=== PATIENT | female | born 1960 | race African-American/Black ===

== ENCOUNTER 2020-05-30 07:53 | Emergency (ER) | payer MEDICARE, MEDICAID ==
--- NOTE | 2020-05-30 08:40 | RADIOLOGY REPORT (SQ) ---
EXAM DESCRIPTION: CHEST SINGLE VIEW IMAGES COMPLETED DATE/TIME: 05/30/2020 8:22 am REASON FOR STUDY: bed 6 short of breath COMPARISON: None. EXAM PARAMETERS: NUMBER OF VIEWS: One view. TECHNIQUE: Single frontal radiographic view of the chest acquired. RADIATION DOSE: NA LIMITATIONS: None. FINDINGS: LUNGS AND PLEURA: Basilar interstitial markings are prominent. No focal consolidation or pneumothorax. No effusions. MEDIASTINUM AND HILAR STRUCTURES: No masses. Contour normal. HEART AND VASCULAR STRUCTURES: Heart is enlarged. Mild central vascular prominence. BONES: No acute findings. HARDWARE: Dialysis catheters in place. Vascular stents overlie the left axilla. OTHER: No other significant finding. IMPRESSION: Cardiomegaly. Mild prominence of interstitial markings. This may represent mild vascul ar congestion. TECHNICAL DOCUMENTATION: JOB ID: [id number] 2010 [employer]- All Rights Reserved Reading location - IP/workstation name: [email or web address]
--- NOTE | 2020-05-30 08:49 | ER Document Report ---
ED General - General Chief Complaint: Shortness Of Breath Stated Complaint: SHORTNESS OF BREATH Primary Care Provider: DANIEL MACE PA-C [ALLIED HEALTH PROFESSIONAL] - Follow up as needed - [facility] Notes: 60-year-old female arrives with shortness of breath. Patient states that she had sudden onset of shortness of breath today, felt that she could not breathe. Denies chest pain, fever or cough. Patient is a Saturday dialysis patient, she last went to dialysis last Saturday. She did not go to dialysis on Saturday because she had a fall the night previous and had some pain to her head, left shoulder and left leg. She states that she did go to the dialysis center today however did not receive her session because there was concern that her left chest Vas-Cath has been dislodged. Patient states that it likely pulled out when she fell last week. She states that it was placed about a week ago in [place]. She did not take any of her hypertensive medicines this morning. - Related Data Allergies/Adverse Reactions: amoxicillin Allergy (Verified 05/30/20 08:24) tomato Allergy (Verified 05/30/20 08:24) Home Medications: Amlodipine, Omeprazole, Aspirin, Renvela, Cyclobenzaprine, Temazepam, Terazosin, Lasix, Gabapentin, Tramadol, Trazadone, Lorazepam, Metoprolol Past Medical History - General Information source: Patient - Social History Smoking Status: Current Every Day Smoker Family History: Reviewed & Not Pertinent - Past Medical History Cardiac Medical History: Reports: Hx Hypertension Endocrine Medical History: Reports: Hx Diabetes Mellitus Type 2 Renal/ Medical History: Reports: Hx End Stage Renal Disease GI Medical History: Reports: Hx Gastroesophageal Reflux Disease Review of Systems - Review of Systems Constitutional: denies: Chills, Fever EENT: denies: Blurred vision Cardiovascular: denies: Chest pain Respiratory: Short of breath Gastrointestinal: denies: Abdominal pain Genitourinary: Other - Does not make urine Female Genitourinary: No symptoms reported Musculoskeletal: Joint pain Skin: No symptoms reported Hematologic/Lymphatic: No symptoms reported Neurological/Psychological: denies: Headaches Physical Exam - Vital signs Vitals: Temp Resp BP Pulse Ox 98.5 F 19 188/165 H 98 05/30/20 07:58 05/30/20 07:58 05/30/20 07:58 05/30/20 07:58 - General General appearance: Alert In distress: Moderate - HEENT Head: Normocephalic, Atraumatic Eyes: Periorbital ecchymosis Extraocular movements intact: Yes Pupils: PERRL - Respiratory Respiratory status: Tachypnea Breath sounds: Rales - Cardiovascular Rhythm: Other Heart sounds: Normal auscultation Murmur: Yes - Abdominal Inspection: Obese Tenderness: Nontender - Extremities General lower extremity: Edema Notes: Full range of motion of left shoulder, no deformity. She has mild tenderness in the anterior aspect - Neurological Neuro grossly intact: Yes Cognition: Normal Orientation: AAOx4 - Psychological Associated symptoms: Normal affect - Skin Skin Temperature: Warm Course - Re-evaluation Re-evalutation: 60-year-old female here with acute onset of shortness of breath. She is a dialysis patient, she has missed her last 2 sessions. On exam she has some increased work of breathing and diffuse rails. Not coughing up any frothy sputum. She has some peripheral edema as well. Additionally looking at her last cath it does appear to be somewhat dislodged. It appears that the cough is now visible outside of her skin. I am concerned for acute volume overload secondary to missing dialysis. Currently does not need BiPAP but will monitor closely. Likely hyperkalemia. She additionally is quite hypertensive 220s over 120s, will initiate nitro infusion. Currently do not have dialysis capabilities here, anticipating she will need to be transferred. 05/30/20 11:06 Hyperkalemia which is expected. EKG without massive peaked T's. Have ordered calcium gluconate, D50, insulin and bicarb to shift. Called [facility] to initiate transfer. 05/30/20 11:[address] Banerjee with nephrology, pt to be transfered for dialysis 05/30/20 12:[address] Rico who will be able to place trialysis cath 05/30/20 13:11 Patient has been accepted in transfer by Dr. Sue. Informed by nursing that potassium shifting medications have not yet been administered due to incompatibility with her peripheral line. We are still pending trial since catheter placement. 05/30/20 13:[address], there is no bleed. It does comment that there is some orbital fat herniation, would consider this to be subacute fracture based on that she fell last week. She has no exophthalmos. - Vital Signs Vital signs: Temp Pulse Resp BP Pulse Ox 98.5 F 11 L 199/93 H 99 05/30/20 07:58 05/30/20 12:41 05/30/20 12:46 05/30/20 12:46 - Laboratory Result Diagrams: 05/30/20 09:04 05/30/20 09:04 Laboratory results interpreted by me: 05/30/20 05/30/20 05/30/20 09:04 09:04 09:04 RBC 3.52 L Hgb 10.1 L Hct 30.5 L RDW 15.0 H Seg Neutrophils % 79.0 H VBG pH 7.27 L VBG HCO3 16.6 L Potassium 5.7 H Carbon Dioxide 19 L BUN 82 H Creatinine 21.63 H Est GFR ( Amer) 2 L Est GFR (MDRD) Non-Af 2 L Phosphorus 7.3 H Direct Bilirubin 0.7 H Alkaline Phosphatase 156 H NT-Pro-B Natriuret Pep 05/30/20 09:04 RBC Hgb Hct RDW Seg Neutrophils % VBG pH VBG HCO3 Potassium Carbon Dioxide BUN Creatinine Est GFR ( Amer) Est GFR (MDRD) Non-Af Phosphorus Direct Bilirubin Alkaline Phosphatase NT-Pro-B Natriuret Pep 57351 H - Diagnostic Test Radiology reviewed: Image reviewed, Reports reviewed - EKG Interpretation by Me Additional EKG results interpreted by me: EKG interpreted by me. Sinus rhythm with rate 78. Right bundle. Slightly peaked T's in V3 and V4. Discharge - Discharge Clinical Impression: ESRD needing dialysis, Hyperkalemia, Hypertensive emergency Pulmonary edema Qualifiers: Chronicity: acute Qualified Code(s): J81.0 - Acute pulmonary edema Facial trauma Qualifiers: Encounter type: initial encounter Qualified Code(s): S09.93XA - Unspecified injury of face, initial encounter Disposition: [facility] Referrals: DANIEL MACE PA-C [ALLIED HEALTH PROFESSIONAL] - Follow up as needed
[2020-05-30] MEDS ORDERED: NITROGLYCERIN/D5W 50 MG/250 ML RTUINJ IV PRN (09:04)
[2020-05-30 09:36] LABS: VENOUS BLOOD BASE EXCESS -9.6 mmol/L; VENOUS BLOOD HCO3 16.6 mmol/L (20-32); VENOUS BLOOD PCO2 37.3 mmHg (35-63); VENOUS BLOOD PH 7.27 (7.30-7.42)
[2020-05-30 09:37] LABS: INTERNATIONAL RATION (INR) 1.04; PROTHROMBIN TIME 13.8 SEC (11.4-15.4)
[2020-05-30 09:47] LABS: ABSOLUTE BASOPHILS # (AUTO) 0.1 10^3/uL (0.0-0.2); ABSOLUTE EOSINOPHILS # (AUTO) 0.2 10^3/uL (0.0-0.6); ABSOLUTE LYMPHOCYTES (AUTO) 1.3 10^3/uL (0.5-4.7); ABSOLUTE MONOCYTES (AUTO) 0.3 10^3/uL (0.1-1.4); BASOPHILS % (AUTO) 0.7 % (0-2); EOSINOPHILS % (AUTO) 1.8 % (0-6); HEMATOCRIT 30.5 % (36.0-47.0); HEMOGLOBIN 10.1 g/dL (12.0-15.5); MEAN CORPUSCULAR HEMOGLOBIN 28.6 pg (27.0-33.4); MEAN CORPUSCULAR VOLUME 87 fl (80-97); MONOCYTES % (AUTO) 3.5 % (3-13); PLATELET COUNT 236 10^3/uL (150-450); RED BLOOD COUNT 3.52 10^6/uL (3.72-5.28); TOTAL CELLS COUNTED % (AUTO) 100 %; WHITE BLOOD COUNT 8.9 10^3/uL (4.0-10.5)
--- NOTE | 2020-05-30 09:49 | RADIOLOGY REPORT (SQ) ---
EXAM DESCRIPTION: SHOULDER LEFT 2 OR MORE VIEWS IMAGES COMPLETED DATE/TIME: 05/30/2020 9:30 am REASON FOR STUDY: fall COMPARISON: None. NUMBER OF VIEWS: Three views. TECHNIQUE: Internal rotation, external rotation, and Y view images acquired of the left shoulder. LIMITATIONS: None. FINDINGS: MINERALIZATION: Mildly decreased BONES: No acute fracture dislocation. Mild acromioclavicular and glenohumeral osteophytosis. JOINTS: No dislocation. VISUALIZED LUNGS AND RIBS: No pneumothorax. No rib fracture. SOFT TISSUES: Vascular stent overlies left axilla. Partially visualized left internal jugular based hemodialysis catheter OTHER: No other significant finding. IMPRESSION: 1. No evidence of acute bony abnormality of the left shoulder. 2. Mild acromioclavicular and glenohumeral osteoarthropathy. TECHNICAL DOCUMENTATION: JOB ID: [id number] 2010 [employer]- All Rights Reserved Reading location - IP/workstation name: [email or web address]
[2020-05-30 10:04] LABS: ALBUMIN 4.3 g/dL (3.5-5.0); ALKALINE PHOSPHATASE 156 U/L (38-126); ANION GAP 18 (5-19); ASPARTATE AMINO TRANSFERASE 36 U/L (14-36); BILIRUBIN,DIRECT 0.7 mg/dL (0.0-0.4); BILIRUBIN,TOTAL 0.8 mg/dL (0.2-1.3); BLOOD UREA NITROGEN 82 mg/dL (7-20); CALCIUM 8.5 mg/dL (8.4-10.2); CARBON DIOXIDE 19 mmol/L (22-30); CHLORIDE 107 mmol/L (98-107); GLUCOSE 107 mg/dL (75-110); PHOSPHORUS 7.3 mg/dL (2.5-4.5); POTASSIUM 5.7 mmol/L (3.6-5.0)
[2020-05-30 10:19] LABS: TROPONIN I 0.089 ng/mL
--- NOTE | 2020-05-30 10:30 | RADIOLOGY REPORT (SQ) ---
EXAM DESCRIPTION: CT HEAD WITHOUT IMAGES COMPLETED DATE/TIME: 05/30/2020 10:17 am REASON FOR STUDY: fall, L head trauma COMPARISON: None. TECHNIQUE: Axial images acquired through the brain without intravenous contrast. Images reviewed wi th bone, brain and subdural windows. Additional sagittal and coronal reconstructions were generated. Images stored on PACS. All CT scanners at this facility use dose modulation, iterative reconstruction, and/or weight based d osing when appropriate to reduce radiation dose to as low as reasonably achievable (ALARA). [facility]: Dose Right [facility]: CareDose [facility]: Dose Right [facility]: Teradose 4D [facility]: Minggl RADIATION DOSE: CT Rad equipment meets quality standard of care and radiation dose reduction techniq ues were employed. CTDIvol: 53.2 mGy. DLP: 1070 mGy-cm. mGy. LIMITATIONS: None. FINDINGS: VENTRICLES: Normal size and contour. CEREBRUM: No masses. No hemorrhage. No midline shift. No evidence for acute infarction. Normal gra y/white matter differentiation. No areas of low density in the white matter. CEREBELLUM: No masses. No hemorrhage. No alteration of density. No evidence for acute infarction. EXTRAAXIAL SPACES: No fluid collections. No masses. ORBITS AND GLOBE: No intra- or extraconal masses. Normal contour of globe without masses. CALVARIUM: No fracture. PARANASAL SINUSES: Disruption of the ligament of lamina papyracea on the left with herniation of intr aorbital fat within the ethmoid air cells, chronicity uncertain. Mild mucosal thickening within the inferior right maxillary sinus and sphenoid sinuses. SOFT TISSUES: No mass or hematoma. OTHER: No other significant finding. IMPRESSION: 1. Disruption of the left lamina papyracea with herniation of the intraorbital fat with in the ethmoid air cells, possibly congenital variant or sequelae of medial orbital wall fracture, ch ronicity uncertain. No significant inflammatory change. 2. No other evidence of acute intracranial process. EVIDENCE OF ACUTE STROKE: NO. COMMENT: Quality ID # [id number]: Final reports with documentation of one or more dose reduction techniques (e.g., Automated exposure control, adjustment of the mA and/or kV according to patient size, use of iterative reconstruction technique) TECHNICAL DOCUMENTATION: JOB ID: [id number] 2010 [employer]- All Rights Reserved Reading location - IP/workstation name: [email or web address]
[2020-05-30] MEDS ORDERED: INSULIN REG, HUMAN 100 UNIT/ML 3 ML VIAL (PYX) IV ONE ×2 (10:53→14:00)
[2020-05-30] MEDS ORDERED: DEXTROSE 50%-WATER 25 GM/50 ML DISP.SYRIN IV ONE ×2 (10:53→14:00)
[2020-05-30] MEDS ORDERED: CALCIUM GLUCONATE 1000 MG/10 ML INJ IV ONE ×2 (10:53→14:00)
[2020-05-30] MEDS ORDERED: SODIUM BICARBONATE 8.4% INJ 50 MEQ/50 ML DISP.SYRIN IV ONE ×2 (10:54→14:00)
--- NOTE | 2020-05-30 12:27 | EKG REPORT ---
SEVERITY:- ABNORMAL ECG - SINUS RHYTHM ATRIAL PREMATURE COMPLEX RIGHT BUNDLE BRANCH BLOCK : Confirmed by: Lyndon Hobson MD 30-May-2020 12:27:32
[2020-05-30 15:03] VITALS: BP 222/108
--- NOTE | 2020-05-30 16:59 | Operative Report ---
Operative Report DATE OF SURGERY: 05/30/20 PREOPERATIVE DIAGNOSIS: Dislodged vascular catheter for hemodialysis POSTOPERATIVE DIAGNOSIS: Same OPERATION: Placement of paralysis hemodialysis catheter via the right common femoral vein under ultrasound guidance SURGEON: JOVITA ROBERT ANESTHESIA: Local TISSUE REMOVED OR ALTERED: None COMPLICATIONS: None ESTIMATED BLOOD LOSS: 10 cc QUANTITATIVE BLOOD LOSS: 10 INTRAOPERATIVE FINDINGS: Normal right common femoral vein noted on ultrasound PROCEDURE: After informed consent obtained the patient was placed in supine position and the right groin prepped and draped in the usual sterile fashion. Local anesthesia infiltrated over the right groin where the femoral vein was noted on ultrasound. Next the right femoral vein was then punctured percutaneously and back flow from the needle was dark and nonpulsatile. Guidewire placed through the needle the needle removed. Puncture site dilated and a straight dialysis catheter about 30 cm was then placed through the guidewire all the way to the hub. Guidewire was removed and all the 3 ports aspirated blood easily and instilled saline easily. Catheter was then anchored to the skin with 3-0 nylon. Biopatch placed at the insertion site and a transparent dressing placed over the Biopatch and catheter. Patient will be transported right away to [facility] for hemodialysis. The Vas-Cath was left in place for possible removal at [facility]. Patient tolerated procedure well.
== END 2020-05-30 15:00 | disposition short-term general hospital (02) ==
LOC: ER 07:53
DX: S09.93XA Unspecified injury of face, initial encounter (principal); R51 Headache; M25.512 Pain in left shoulder; W19.XXXA Unspecified fall, initial encounter; E87.5 Hyperkalemia; J81.0 Acute pulmonary edema; R06.02 Shortness of breath; E11.22 Type 2 diabetes mellitus with diabetic chronic kidney disease; I12.0 Hypertensive chronic kidney disease with stage 5 chronic kidney disease or end stage renal disease; N18.6 End stage renal disease; Z88.0 Allergy status to penicillin; Z99.2 Dependence on renal dialysis
CPT/HCPCS: 93005; 99285; 96375; 96365; 96366; 36415; 87040; 82962; 83605; 84100; 85025; 85610; 85730; 80053; 84484; 82803; 83880; 71045; 73030; 70450; 93010; 36558; 76937; J0610; J3490 ×3; A9270; J1815